=== PATIENT | female | born 1970 | race Hispanic/Latino ===

== ENCOUNTER → 2018-07-13 10:49 | Outpatient (CLI) | payer OTHER, SELFPAY ==
--- NOTE | 2018-07-13 | DI.US.S_ITS ---
PROCEDURE: US PELVIC COMPLETE INDICATIONS: UNSPECIFIED DYSPAREUNIA TECHNIQUE: Real-time scanning was performed of the pelvic organs, with image documentation. Additional endovaginal scanning was necessary due to incomplete visualization of the adnexal and endometrial structures by transabdominal scanning. COMPARISON: None. FINDINGS: Transabdominal scanning: Limited scanning through the kidneys shows no hydronephrosis. No pathologic free abdominal or pelvic fluid. Anteverted anteflexed uterus measures about 9.8 x 5.6 x 4.9 cm. Normal contours. Endovaginal scanning: Uterus: Uterus is normal in morphology without mass. The endometrium measures 7.2 mm in combined thickness. Normal vascularity. Ovaries: The right ovary measures 2.4 x 1.6 x 2.0 cm. The left measures 2.7 x 1.7 x 1.8 cm. Given the left ovarian position, vascularity is difficult to assess. Morphology is normal. Right ovary demonstrates normal morphology and vascularity. No suspicious adnexal masses. IMPRESSION: Normal pelvic ultrasound. Dictated by: Tomasa Mrain M.D. on 07/13/2018 at 16:16 Approved by: Tomasa Marin M.D. on 07/13/2018 at 16:23
== END ==
PROVIDERS: Family Provider Nurse Practitioner Family; Visit Provider Family Medicine
DX: N94.10 Unspecified dyspareunia (principal)
CPT/HCPCS: 76830; 76856

== ENCOUNTER → 2021-02-19 12:59 | Outpatient (CLI) | payer OTHER, MEDICAID, SELFPAY | PROVIDERS: PCP Family Medicine; Referring Provider Internal Medicine; Visit Provider Internal Medicine | DX: Z23 Encounter for immunization (principal) | CPT/HCPCS: 90471; 90686 ==

== ENCOUNTER → 2021-03-23 09:14 | Outpatient (CLI) | payer OTHER, MEDICAID, SELFPAY ==
[2021-03-23 22:29] LABS: COVID19 - ORCAS (NP or Nasal) POSITIVE (Negative)
== END ==
PROVIDERS: PCP Family Medicine; Visit Provider Family Medicine
DX: U07.1 COVID-19 (principal); Z20.822 Contact with and (suspected) exposure to COVID-19
CPT/HCPCS: U0003

== ENCOUNTER → 2021-05-18 08:24 | Outpatient (CLI) | payer OTHER, MEDICAID, SELFPAY ==
[2021-05-19 20:47] LABS: Alanine Aminotransferase 11 IU/L (<35); Albumin 4.3 g/dL (3.5-5.0); Albumin Globulin Ratio 1.3 (1.0-2.8); Alkaline Phosphatase 71 U/L (38-126); Aspartate Aminotransferase 29 IU/L (14-36); Bilirubin Total 0.5 mg/dL (0.2-1.3); Blood Urea Nitrogen 15 mg/dL (7-17); Calcium 9.3 mg/dL (8.4-10.2); Carbon Dioxide 29 mmol/L (22-32); Chloride 106 mmol/L (98-107); Cholesterol 197 mg/dL (140-199); Estimated Glomerular Filt Rate > 60.0 mL/min (>60); Globulin 3.2 g/dL (1.7-4.1); Glucose 100 mg/dL (70-100); HDL Cholesterol 61 mg/dL (40-60); HEMOLYSIS < 15 (0-50); LDL Cholesterol Calculated 113 mg/dL (<100); Potassium 3.9 mmol/L (3.4-5.1); Sodium 139 mmol/L (137-145); Total Protein 7.5 g/dL (6.3-8.2); Triglycerides 117 mg/dL (35-150)
[2021-05-19 21:53] LABS: Creatinine Urine Random 876.8 mg/dL; Microalbumi Creatinin Ratio Ur 52.8 ug/mg CR (<30); Microalbumin Urine Random 46.3 mg/dL (0-1.6)
[2021-05-19 22:57] LABS: Hemoglobin A1C% w Est Avg Glu 5.8 % (4.0-6.0)
== END ==
PROVIDERS: PCP Family Medicine; Visit Provider Family Medicine
DX: E11.9 Type 2 diabetes mellitus without complications (principal)
CPT/HCPCS: 80053; 80061; 82043; 82570; 83036

== ENCOUNTER → 2021-08-20 11:55 | Outpatient (CLI) | payer OTHER, MEDICAID, SELFPAY ==
[2021-08-20 18:30] LABS: Alanine Aminotransferase 13 IU/L (<35); Albumin 3.8 g/dL (3.5-5.0); Albumin Globulin Ratio 1.3 (1.0-2.8); Alkaline Phosphatase 71 U/L (38-126); Aspartate Aminotransferase 33 IU/L (14-36); BUN Creatinine Ratio 19.5 (6-22); Bilirubin Total 0.4 mg/dL (0.2-1.3); Blood Urea Nitrogen 15 mg/dL (7-17); Calcium 8.6 mg/dL (8.4-10.2); Carbon Dioxide 28 mmol/L (22-32); Chloride 104 mmol/L (98-107); Cholesterol 174 mg/dL (140-199); Estimated Glomerular Filt Rate > 60 mL/min (>60); Globulin 2.9 g/dL (1.7-4.1); Glucose 90 mg/dL (70-100); HDL Cholesterol 62 mg/dL (40-60); HEMOLYSIS < 15 (0-50); LDL Cholesterol Calculated 88 mg/dL (<100); Potassium 4.2 mmol/L (3.4-5.1); Sodium 136 mmol/L (137-145); Total Protein 6.7 g/dL (6.3-8.2); Triglycerides 119 mg/dL (35-150)
[2021-08-20 18:40] LABS: Creatinine Urine Random 162.8 mg/dL
[2021-08-20 18:44] LABS: Microalbumi Creatinin Ratio Ur 9.2 ug/mg CR (<30); Microalbumin Urine Random 1.5 mg/dL (0-1.6)
[2021-08-20 18:48] LABS: Hemoglobin A1C% w Est Avg Glu 5.4 % (4.0-6.0)
== END ==
PROVIDERS: PCP Family Medicine; Visit Provider Family Medicine
DX: E11.9 Type 2 diabetes mellitus without complications (principal)
CPT/HCPCS: 80053; 80061; 82043; 82570; 83036

== ENCOUNTER → 2022-01-13 08:59 | Outpatient (CLI) | payer OTHER, MEDICAID, SELFPAY ==
[2022-01-13 19:28] LABS: Alanine Aminotransferase 13 IU/L (<35); Albumin 4.2 g/dL (3.5-5.0); Albumin Globulin Ratio 1.4 (1.0-2.8); Alkaline Phosphatase 72 U/L (38-126); Aspartate Aminotransferase 28 IU/L (14-36); BUN Creatinine Ratio 15.2 (6-22); Bilirubin Total 0.6 mg/dL (0.2-1.3); Blood Urea Nitrogen 15 mg/dL (7-17); Carbon Dioxide 26 mmol/L (22-32); Chloride 103 mmol/L (98-107); Estimated Glomerular Filt Rate > 60 mL/min (>60); Glucose 94 mg/dL (70-100); HEMOLYSIS < 15 (0-50); Potassium 3.9 mmol/L (3.4-5.1); Sodium 138 mmol/L (137-145); Total Protein 7.2 g/dL (6.3-8.2)
[2022-01-13 19:38] LABS: Hemoglobin A1C% w Est Avg Glu 4.9 % (4.0-6.0)
== END ==
PROVIDERS: PCP Family Medicine; Visit Provider Family Medicine
DX: E11.9 Type 2 diabetes mellitus without complications (principal)
CPT/HCPCS: 80053; 83036

== ENCOUNTER → 2022-01-25 15:31 | Outpatient (CLI) | payer OTHER, MEDICAID, SELFPAY | PROVIDERS: PCP Family Medicine; Referring Provider Internal Medicine; Visit Provider Internal Medicine | DX: Z23 Encounter for immunization (principal) | CPT/HCPCS: 90471; 90686 ==

== ENCOUNTER → 2022-11-08 13:35 | Outpatient (CLI) | payer OTHER, MEDICAID, SELFPAY ==
[2022-11-08 20:18] LABS: Alanine Aminotransferase 11 IU/L (<35); Albumin 4.2 g/dL (3.5-5.0); Albumin Globulin Ratio 1.4 (1.0-2.8); Alkaline Phosphatase 62 U/L (38-126); Aspartate Aminotransferase 30 IU/L (14-36); BUN Creatinine Ratio 18.9 (6-22); Bilirubin Total 0.7 mg/dL (0.2-1.3); Blood Urea Nitrogen 17 mg/dL (7-17); Calcium 9.2 mg/dL (8.4-10.2); Carbon Dioxide 28 mmol/L (22-32); Chloride 103 mmol/L (98-107); Cholesterol 172 mg/dL (140-199); Estimated Glomerular Filt Rate > 60 mL/min (>60); Globulin 2.9 g/dL (1.7-4.1); Glucose 85 mg/dL (70-100); HDL Cholesterol 65 mg/dL (40-60); HEMOLYSIS < 15 (0-50); LDL Cholesterol Calculated 87 mg/dL (<100); Potassium 3.9 mmol/L (3.4-5.1); Sodium 136 mmol/L (137-145); Total Protein 7.1 g/dL (6.3-8.2); Triglycerides 102 mg/dL (35-150)
[2022-11-08 20:27] LABS: Hemoglobin A1C% w Est Avg Glu 4.7 % (4.0-6.0)
[2022-11-08 20:35] LABS: Follicle Stimulating Hormone 17.4 mIU/mL
[2022-11-16 11:30] LABS: Anti Mullerian Hormone <0.015 ng/mL (.)
== END ==
PROVIDERS: PCP Family Medicine; Visit Provider Nurse Practitioner Adult Health
DX: N95.1 Menopausal and female climacteric states (principal); E11.9 Type 2 diabetes mellitus without complications
CPT/HCPCS: 80053; 80061; 82397; 82670; 83001; 83036

== ENCOUNTER → 2023-02-22 10:21 | Outpatient (CLI) | payer OTHER, MEDICAID, SELFPAY | PROVIDERS: PCP Family Medicine; Referring Provider Family Medicine; Visit Provider Family Medicine | DX: Z23 Encounter for immunization (principal) | CPT/HCPCS: 90471; 90686 ==

== ENCOUNTER → 2023-05-06 16:46 | Outpatient (CLI) | payer OTHER, MEDICAID, SELFPAY ==
--- NOTE | 2023-05-06 16:47 | DI.MRI.S_ITS ---
PROCEDURE: MR HEAD/BRAIN WO/W CON INDICATIONS: distorted vision TECHNIQUE: Noncontrast axial T1 spin echo, axial T2 fast spin echo, sagittal and axial FLAIR, coronal T2 fast spin echo, axial gradient echo, axial diffusion and ADC through the brain. After the administration of contrast, axial and coronal and sagittal 3D VIBE or T1 spin echo with fat saturation through the brain. COMPARISON: None. FINDINGS: Image quality: Excellent. CSF Spaces: Basal cisterns are patent. No extra-axial fluid collections. Ventricles are normal in size and shape. Brain: No midline shift. No intracranial bleeds or masses. No abnormal intracranial enhancement. The brainstem appears normal. Diffusion-weighted images demonstrate no acute infarct. No chronic ischemic insults. Normal intravascular flow voids are present. A few scattered foci of T2 weighted hyperintensity can be seen within the peripheral and deep white matter. Skull and face: Calvarial marrow is normal in signal. Orbits appear normal. Sinuses: Sinuses and mastoids appear clear. IMPRESSION: A few scattered foci of nonenhancing T2 weighted hyperintensity can be seen. These are nonspecific, although please consider early chronic small vessel ischemic change, sequelae of migraine headaches, and a demyelinating process (including multiple sclerosis). No masses or abnormal enhancement can be seen. Dictated by: Long Lima M.D. on 05/06/2023 at 18:34 Approved by: Long Lima M.D. on 05/06/2023 at 18:36
--- NOTE | 2023-05-06 16:47 | DI.MG.S_ITS ---
BILATERAL DIGITAL SCREENING MAMMOGRAM 3D/2D WITH CAD: 05/06/2023 CLINICAL: Routine screening. Family history of breast cancer. Comparison is made to exams dated: 04/25/2014 mammogram - [facility] and 08/08/2019 mammogram - [facility]. There are scattered areas of fibroglandular density in both breasts (category b / 25%-50% glandular tissue). Current study was also evaluated with a Computer Aided Detection (CAD) system. There is a new irregular asymmetry in the left breast central to the nipple middle depth. No other significant masses, calcifications, or other findings are seen in either breast. IMPRESSION: INCOMPLETE: NEEDS ADDITIONAL IMAGING EVALUATION The new irregular asymmetry in the left breast is indeterminate. Additional views with possible ultrasound are recommended. Based on the Tyrer Cuzick model (a risk assessment model) the patient's lifetime risk is 9.9% and her 10 year risk is 2.4%. According to the ACR, ACS, and NCCN guidelines, an annual breast MRI exam along with mammogram is recommended if the patient's lifetime risk is 20% or greater. This exam was interpreted at Station ID: [id number]. NOTE: For mammograms, a report in lay terms will be sent to the patient. Approximately 15% of breast malignancies will not be visualized mammographically. In the management of a palpable breast mass, a negative mammogram must not discourage biopsy of a clinically suspicious lesion. Electronically Signed By: Tomasa covarrubias/erinn:05/09/2023 16:32:45 letter sent: Additional Imaging Needed ACR BI-RADS Category 0: Incomplete 3340F
== END ==
PROVIDERS: PCP Family Medicine; Referring Provider Family Medicine; Visit Provider Family Medicine
DX: Z12.31 Encounter for screening mammogram for malignant neoplasm of breast (principal); Z80.3 Family history of malignant neoplasm of breast; H53.9 Unspecified visual disturbance; R92.323 Mammographic fibroglandular density, bilateral breasts
CPT/HCPCS: 70553; 77063; 77067; A9579

== ENCOUNTER → 2023-05-18 08:25 | Outpatient (CLI) | payer OTHER, MEDICAID, SELFPAY ==
--- NOTE | 2023-05-18 | DI.MG.S_ITS ---
UNILATERAL LEFT DIGITAL DIAGNOSTIC MAMMOGRAM 3D/2D WITH ADDITIONAL VIEWS: 05/18/2023 CLINICAL: Additional evaluation requested from prior study. Comparison is made to exams dated: 05/06/2023 mammogram - [facility], 08/08/2019 mammogram - [facility], and 04/25/2014 mammogram - [facility]. There are scattered areas of fibroglandular density in the left breast (category b / 25%-50% glandular tissue). The asymmetry in the left breast central to the nipple middle depth is not seen in additional views. No other significant masses or calcifications are seen in the breast. IMPRESSION: BENIGN The irregular asymmetry in the left breast seen on the screening mammogram likely respresents superimposed fibroglandular tissue and is benign. There is no mammographic evidence of malignancy. Return to annual mammogram screening schedule is recommended. Based on the Tyrer Cuzick model (a risk assessment model) the patient's lifetime risk is 9.9% and her 10 year risk is 2.4%. According to the ACR, ACS, and NCCN guidelines, an annual breast MRI exam along with mammogram is recommended if the patient's lifetime risk is 20% or greater. This exam was interpreted at Station ID: [id number]. NOTE: For mammograms, a report in lay terms will be sent to the patient. Approximately 15% of breast malignancies will not be visualized mammographically. In the management of a palpable breast mass, a negative mammogram must not discourage biopsy of a clinically suspicious lesion. Electronically Signed By: Casi Mathew M.D. lk/:05/18/2023 08:57:48 letter sent: Normal Exam ACR BI-RADS Category 2: Benign Finding(s) 3342F
== END ==
LOC: MAMMO 08:25
PROVIDERS: PCP Family Medicine; Referring Provider Family Medicine; Visit Provider Family Medicine
DX: R92.8 Other abnormal and inconclusive findings on diagnostic imaging of breast (principal); Z80.3 Family history of malignant neoplasm of breast; R92.322 Mammographic fibroglandular density, left breast
CPT/HCPCS: 77065; G0279

== ENCOUNTER 2023-05-27 19:00 | Emergency (ER) | payer OTHER, MEDICAID, SELFPAY ==
[2023-05-27] VITALS (12 sets, daily range): BP systolic 162–212; BP diastolic 90–113; PULSE 68–89; RESP 17; TEMP 36.8; O2SAT 95–100
--- NOTE | 2023-05-27 19:06 | DI.CT.S_ITS ---
PROCEDURE: CT HEAD/BRAIN WO CON INDICATIONS: SEVERE R SIDED RAM X2 DAYS TECHNIQUE: Noncontrast 4.5 mm thick angled axial sections acquired from the foramen magnum to the vertex, with coronal and sagittal reformats. For radiation dose reduction, the following was used: automated exposure control, adjustment of mA and/or kV according to patient size. COMPARISON: [facility], MR, MR HEAD/BRAIN WO/W CON, 05/06/2023, 17:54. FINDINGS: Image quality: Diagnostic CSF spaces: Basal cisterns are patent. Lateral ventricles are symmetric. Volume: Minimal volume loss Brain: No acute hemorrhage. No gross loss of foy-white differentiation. Craniofacial structures: No significant paranasal sinus opacification. Partially empty sella. IMPRESSION: No acute intracranial abnormality. If there is high concern for parenchymal pathology, consider further evaluation with MRI. Dictated by: Delroy Dinh M.D. on 05/27/2023 at 19:38 Approved by: Delroy Dinh M.D. on 05/27/2023 at 19:40
[2023-05-27 19:28] LABS: Add Manual Diff / Slide Review NO; Basophils Absolute Auto 100 /uL (0-100); Basophils Percent Auto 1.2 % (0-2); Eosinophils Absolute Auto 200 /uL (0-450); Eosinophils Percent Auto 2.2 % (2-4); Hematocrit 38.5 % (36-46); Hemoglobin 12.8 g/dL (12.0-16.0); Lymphocytes Absolute Auto 2500 /uL (1100-4500); Lymphocytes Percent Auto 35.9 % (25-40); Mean Corpuscular HGB Conc 33.2 % (30-36); Mean Corpuscular Hemoglobin 26.8 PG (26-34); Mean Corpuscular Volume 80.9 fL (80-100); Monocytes Absolute Auto 400 /uL (0-900); Monocytes Percent Auto 6.1 % (3-14); Neutrophils Absolute Auto 3700 /uL (1500-7000); Neutrophils Percent Auto 54.6 % (50-75); Platelet Count 275 X10^3/uL (150-400); Red Blood Cell Count 4.77 X10^6/uL (4.0-5.2); Red Cell Distribution Width 16.1 % (11.6-14.8); White Blood Cell Count 6.8 X10^3/uL (4.5-11.0)
[2023-05-27 19:34] LABS: Alanine Aminotransferase 11 IU/L (<35); Albumin 4.2 g/dL (3.5-5.0); Albumin Globulin Ratio 1.3 (1.0-2.8); Alkaline Phosphatase 50 U/L (38-126); Aspartate Aminotransferase 32 IU/L (14-36); BUN Creatinine Ratio 20.7 (6-22); Bilirubin Total 0.5 mg/dL (0.2-1.3); Blood Urea Nitrogen 19 mg/dL (7-17); Calcium 8.8 mg/dL (8.4-10.2); Carbon Dioxide 28 mmol/L (22-32); Chloride 108 mmol/L (98-107); Estimated Glomerular Filt Rate > 60 mL/min (>60); Globulin 3.3 g/dL (1.7-4.1); Glucose 97 mg/dL (70-100); Sodium 139 mmol/L (137-145); Total Protein 7.5 g/dL (6.3-8.2)
[2023-05-27] MEDS: SODIUM CHLORIDE 0.9% 1,000 ML 1000 ML IV (19:34)
[2023-05-27] MEDS: diphenhydrAMINE 50 MG/ML VIAL IV (19:34)
[2023-05-27] MEDS: METOCLOPRAMIDE 10 MG/2 ML INJ IV (19:34)
[2023-05-27 19:35] LABS: HEMOLYSIS 67 (0-50); Potassium 4.7 mmol/L (3.4-5.1)
--- NOTE | 2023-05-27 19:50 | ED_ITS ---
HPI - Headache General Chief Complaint: Headache Stated Complaint: Severe Migrain Time Seen by Provider: 05/27/23 19:04 Mode of arrival: other History of Present Illness HPI Narrative: 52-year-old female with history of migraine headaches presents by flight medics from [facility] for right-sided headache with nausea and vomiting. Patient states that she is usually able to control her migraines by closing all the curtains and sleeping off the headache, however for the last several days she has had a pain that is pinpoint in nature to the right side of her head above her ear. Pain is constant with intermittent sharp worsening. Associated with nausea and vomiting. Attempted Tylenol and ibuprofen at home for pain without significant relief. Reported fever of 101 F yesterday, none today. Related Data Home Medications Medication Instructions Recorded Confirmed meloxicam 7.5 mg tablet 7.5 mg PO BID 04/14/23 04/14/23 semaglutide 2 mg/dose (8 mg/3 mL) mg SUBCUT Weight management 04/14/23 04/14/23 subcutaneous pen injector (Ozempic) sertraline 100 mg tablet 200 mg PO DAILY Anxiety 04/14/23 04/14/23 Allergies Allergy/AdvReac Type Severity Reaction Status Date / Time No Known Drug Allergies Allergy Unverified 10/19/22 16:06 Review of Systems Review of Systems Narrative: Negative except as noted above Patient History Medical History (Updated 05/27/23 @ 23:21 by Meg Gaston MD) Cervical cancer screening Well woman exam with routine gynecological exam Social History Smoking Status: Former smoker Smoking Status: Former smoker alcohol intake frequency: other Substance Use Type: does not use Exam Initial Vital Signs Initial Vital Signs: Vital Signs Pulse Oximetry 100 05/27/23 19:03 Const: Awake, alert, no acute distress, nontoxic appearing HEENT: atraumatic, no reproducible tenderness to palpation, TM normal bilaterally. Patient points to temporal region of R scalp as area of pain, however it is not reproducible Cardiac: regular rate, regular rhythm RESP: unlabored, clear bilaterally, no wheezing GI: Atraumatic, soft, nontender, nondistended, no rebound, no guarding MSK: Atraumatic, full range of motion, pulses equal Skin: Warm, Dry, intact, no rashes Neuro: AO x3, CN II-XII grossly intact, moves all extremities Course Orders Ordered: Discontinued Medications Dexamethasone (Dexamethasone 10 Mg/Ml Vial) 10 mg IV NOW ONE Stop: 05/27/23 19:51 Last Admin: 05/27/23 20:15 Dose: 10 mg Documented By: SURAJ Diphenhydramine HCl (Diphenhydramine 50 Mg/Ml Vial) 50 mg IV NOW ONE Stop: 05/27/23 19:24 Last Admin: 05/27/23 19:34 Dose: 50 mg Documented By: PABLITO Sodium Chloride (Normal Saline 0.9%) 1,000 mls @ 1,000 mls/hr IV BOLUS ONE Stop: 05/27/23 20:22 Last Infusion: 05/27/23 21:01 Dose: Infused Documented By: Admin: 05/27/23 19:34 Dose: 1,000 mls/hr Documented By: PABLITO Acetaminophen (Ofirmev) 1,000 mg in 100 mls @ 400 mls/hr IV NOW ONE Stop: 05/27/23 20:04 Last Infusion: 05/27/23 21:01 Dose: Infused Documented By: Admin: 05/27/23 20:16 Dose: 400 mls/hr Documented By: SURAJ Ketorolac Tromethamine (Ketorolac 30 Mg/Ml Vial) 15 mg IV NOW ONE Stop: 05/27/23 19:51 Last Admin: 05/27/23 20:16 Dose: 15 mg Documented By: SURAJ Metoclopramide HCl (Metoclopramide 10 Mg/2 Ml Inj) 10 mg IV NOW ONE Stop: 05/27/23 19:24 Last Admin: 05/27/23 19:34 Dose: 10 mg Documented By: PABLITO Vital Signs Vital signs: Vital Signs - 8 hr 05/27/23 19:03 05/27/23 19:04 05/27/23 19:04 Temperature Pulse Rate 86 Respiratory Rate Blood Pressure 212/111 H Pulse Oximetry 100 97 Oxygen Delivery Method 05/27/23 19:10 05/27/23 19:23 05/27/23 19:23 Temperature 98.3 F Pulse Rate 83 84 Respiratory Rate 17 Blood Pressure 212/111 H 184/95 H Pulse Oximetry 97 97 Oxygen Delivery Method Room Air 05/27/23 19:30 05/27/23 19:30 05/27/23 20:00 Temperature Pulse Rate 77 Respiratory Rate Blood Pressure 175/91 H 176/113 H Pulse Oximetry 97 Oxygen Delivery Method 05/27/23 20:00 05/27/23 20:30 05/27/23 20:30 Temperature Pulse Rate 78 68 Respiratory Rate Blood Pressure 171/95 H Pulse Oximetry 97 96 Oxygen Delivery Method 05/27/23 21:00 05/27/23 21:01 05/27/23 21:01 Temperature Pulse Rate 76 75 Respiratory Rate Blood Pressure 162/90 H Pulse Oximetry 95 96 Oxygen Delivery Method MDM - Headache Differential Diagnosis Differential diagnosis: Likely migraine, tension headache and subarachnoid hemorrhage Lab Data 05/27/23 19:08 05/27/23 19:08 Labs: Lab Results 05/27/23 05/27/23 Range/Units 19:03 19:08 WBC 6.8 (4.5-11.0) X10^3/uL RBC 4.77 (4.0-5.2) X10^6/uL Hgb 12.8 (12.0-16.0) g/dL Hct 38.5 (36-46) % MCV 80.9 (80-100) fL MCH 26.8 (26-34) PG MCHC 33.2 (30-36) % RDW 16.1 H (11.6-14.8) % Plt Count 275 (150-400) X10^3/uL Neut % (Auto) 54.6 (50-75) % Lymph % (Auto) 35.9 (25-40) % [place] % (Auto) 6.1 (3-14) % Eos % (Auto) 2.2 (2-4) % Baso % (Auto) 1.2 (0-2) % Neut # (Auto) 3700 (3379-9309) /uL Lymph # (Auto) 2500 (8623-5600) /uL [place] # (Auto) 400 (0-900) /uL Eos # (Auto) 200 (0-450) /uL Baso # (Auto) 100 (0-100) /uL Sodium 139 (137-145) mmol/L Potassium 4.7 (3.4-5.1) mmol/L Chloride 108 H (98-107) mmol/L Carbon Dioxide 28 (22-32) mmol/L BUN 19 H (7-17) mg/dL Creatinine 0.92 (0.52-1.04) mg/dL Estimated GFR > 60 (>60) mL/min BUN/Creatinine Ratio 20.7 (6-22) Glucose 97 (70-100) mg/dL Calcium 8.8 (8.4-10.2) mg/dL Total Bilirubin 0.5 (0.2-1.3) mg/dL AST 32 (14-36) IU/L ALT 11 (<35) IU/L Alkaline Phosphatase 50 (38-126) U/L Total Protein 7.5 (6.3-8.2) g/dL Albumin 4.2 (3.5-5.0) g/dL Globulin 3.3 (1.7-4.1) g/dL Albumin/Globulin Ratio 1.3 (1.0-2.8) Chlamy pneumoniae PCR Not detected (Not Detect) Adenovirus (PCR) Not detected (Not Detect) B.parapertussis DNA PCR Not detected (Not Detecte) Coronavirus OC43 (PCR) Not detected (Not Detect) Coronavirus HKU1 (PCR) Not detected (Not Detect) Coronavirus 229E (PCR) Not detected (Not Detect) SARS-CoV-2 (PCR) Detected H (Not Detecte) Coronavirus NL63 (PCR) Not detected (Not Detect) Human Metapneumovir PCR Not detected (Not Detect) Influenza Type A (PCR) Not detected (Not Detect) Influenza Type B (PCR) Not detected (Not Detect) M. pneumoniae (PCR) Not detected (Not Detect) Parainfluenza 1 (PCR) Not detected (Not Detect) Parainfluenza 2 (PCR) Not detected (Not Detect) Parainfluenza 3 (PCR) Not detected (Not Detect) Parainfluenza 4 (PCR) Not detected (Not Detect) RSV (PCR) Not detected (Not Detect) Entero/Rhino (PCR) Not detected (Not Detect) Imaging Data CT scan - head: Radiologist's Impression: PROCEDURE: CT HEAD/BRAIN WO CON INDICATIONS: SEVERE R SIDED RAM X2 DAYS TECHNIQUE: Noncontrast 4.5 mm thick angled axial sections acquired from the foramen magnum to the vertex, with coronal and sagittal reformats. For radiation dose reduction, the following was used: automated exposure control, adjustment of mA and/or kV according to patient size. COMPARISON: [facility], MR, MR HEAD/BRAIN WO/W CON, 05/06/2023, 17:54. FINDINGS: Image quality: Diagnostic CSF spaces: Basal cisterns are patent. Lateral ventricles are symmetric. Volume: Minimal volume loss Brain: No acute hemorrhage. No gross loss of foy-white differentiation. Craniofacial structures: No significant paranasal sinus opacification. Partially empty sella. IMPRESSION: No acute intracranial abnormality. If there is high concern for parenchymal pathology, consider further evaluation with MRI. Dictated by: Delroy Dinh M.D. on 05/27/2023 at 19:38 Approved by: Delroy Dinh M.D. on 05/27/2023 at 19:40 [facility] Narrative Medical decision making narrative: Uncomfortable but nontoxic female presenting for headache with nausea and vomiting different from migraines that she has experienced in the past. Pain is located in the right temporal region above the ear but is not reproducible to palpation. No obvious physical exam abnormalities, neurologically intact. Initial blood pressure very hypertensive, however noted to be systolic 150-160 during transport by medics and shortly after arrival patient's blood pressure came back down to her normal range without any therapies. Since headache is different from her typical plan to order CT scan of the head. CT brain negative for acute findings. Patient reports minimal improvement in pain with initial headache cocktail of Reglan and Benadryl. Since there was no acute intracranial pathology we will order Toradol and IV Tylenol as well. Respiratory panel positive for COVID-19. Patient states she still has some residual temporal pain, however it was much improved and she was not experienced any of the spiking in pain since receiving the medications. She states she feels ready to go home, especially knowing that her CT was normal, and she will continue to treat her pain with Tylenol and Motrin. Patient is strongly advised to follow up with her primary care physician. Discharge Plan Departure Patient Disposition: Home Clinical Impression: Headache, Nausea & vomiting, COVID-19 Instructions: DI for Migraine Activity Restrictions/Additional Instructions: TAKE TYLENOL AND MOTRIN NEEDED FOR PAIN OR HEADACHE. GET PLENTY OF FLUIDS AND GET PLENTY OF REST. FOLLOW UP WITH YOUR PRIMARY CARE PHYSICIAN. Prescriptions: No Action sertraline 100 mg tablet 200 mg PO DAILY Ozempic 2 mg/dose (8 mg/3 mL) pen injector SUBCUT meloxicam 7.5 mg tablet 7.5 mg PO BID Referrals: Froilan Milan MD [Primary Care Provider] - Stand Alone Forms: Patient Portal/API
[2023-05-27] MEDS: DEXAMETHASONE 10 MG/ML VIAL IV (20:15)
[2023-05-27] MEDS: ACETAMINOPHEN IV 1,000 MG/100 ML VIAL 400 MG IV (20:16)
[2023-05-27] MEDS: KETOROLAC 30 MG/ML VIAL 15 MG IV (20:16)
[2023-05-27 20:30] LABS: Adenovirus Not Detected (Not Detect); B. parapertussis Not Detected (Not Detecte); Bordetella pertussis Not Detected (Not Detect); Chlamydophila pneumoniae Not Detected (Not Detect); Coronavirus 229E Not Detected (Not Detect); Coronavirus HKU1 Not Detected (Not Detect); Coronavirus NL 63 Not Detected (Not Detect); Coronavirus OC43 Not Detected (Not Detect); Human Metapneumovirus Not Detected (Not Detect); Human Rhinovirus/Enterovirus Not Detected (Not Detect); Influenza A Not Detected (Not Detect); Influenza B Not Detected (Not Detect); Mycoplasma pneumoniae Not Detected (Not Detect); Parainfluenza Virus 1 Not Detected (Not Detect); Parainfluenza Virus 2 Not Detected (Not Detect); Parainfluenza Virus 3 Not Detected (Not Detect); Parainfluenza Virus 4 Not Detected (Not Detect); Respiratory Syncytial Virus Not Detected (Not Detect)
[2023-05-27 20:37] LABS: SARS- CoV-2 Detected (Not Detecte)
--- NOTE | 2023-05-27 23:07 | PC.NURSE ---
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 pt now has bruising on upper arm and red colmenares from BP cuff
== END 2023-05-27 23:27 | disposition home or self-care (01) ==
PROVIDERS: Emergency Provider Emergency Medicine; PCP Family Medicine
DX: U07.1 COVID-19 (principal); R11.2 Nausea with vomiting, unspecified; R51.9 Headache, unspecified
CPT/HCPCS: 70450; 80053; 85025; 87633; 96365; 96375; 99284; J0136; J1100; J1200; J1885; J2765

== ENCOUNTER → 2024-05-07 12:50 | Outpatient (CLI) | payer OTHER, SELFPAY ==
[2024-05-07 19:01] LABS: Add Manual Diff / Slide Review NO; Basophils Absolute Auto 0 /uL (0-100); Basophils Percent Auto 0.7 % (0-2); Eosinophils Absolute Auto 100 /uL (0-450); Eosinophils Percent Auto 1.2 % (2-4); Hematocrit 39.4 % (36-46); Lymphocytes Absolute Auto 2200 /uL (1100-4500); Lymphocytes Percent Auto 33.3 % (25-40); Mean Corpuscular Hemoglobin 26.5 PG (26-34); Mean Corpuscular Volume 80.2 fL (80-100); Monocytes Absolute Auto 300 /uL (0-900); Monocytes Percent Auto 5.2 % (3-14); Neutrophils Absolute Auto 4000 /uL (1500-7000); Neutrophils Percent Auto 59.6 % (50-75); Platelet Count 338 X10^3/uL (150-400); Red Blood Cell Count 4.92 X10^6/uL (4.0-5.2); Red Cell Distribution Width 16.6 % (11.6-14.8); White Blood Cell Count 6.6 X10^3/uL (4.5-11.0)
[2024-05-07 19:35] LABS: Follicle Stimulating Hormone 7.96 mIU/mL
[2024-05-07 19:37] LABS: Vitamin D 25 Hydroxy (D3) < 12.8 ng/mL (30.0-100.0)
[2024-05-07 19:40] LABS: Free T4, Direct Thyroxine 1.12 ng/dL (0.78-2.19)
[2024-05-07 19:50] LABS: Estradiol, Total 95.3 pg/mL
[2024-05-07 19:54] LABS: Ferritin 6 ng/mL (11-264); Thyroid Stimulating Hormone 1.93 uIU/mL (0.47-4.68)
[2024-05-07 20:14] LABS: Vitamin B12 386 pg/mL (239-931)
[2024-05-13 20:10] LABS: Anti Mullerian Hormone <0.015 ng/mL (.)
== END ==
PROVIDERS: PCP Family Medicine; Visit Provider Nurse Practitioner Adult Health
DX: N93.8 Other specified abnormal uterine and vaginal bleeding (principal); E28.2 Polycystic ovarian syndrome
CPT/HCPCS: 82306; 82397; 82607; 82670; 82728; 83001; 84439; 84443; 85025

== ENCOUNTER → 2024-06-12 09:20 | Outpatient (CLI) | payer OTHER, SELFPAY ==
[2024-06-12 18:56] LABS: Add Manual Diff / Slide Review NO; Basophils Absolute Auto 0 /uL (0-100); Basophils Percent Auto 0.4 % (0-2); Eosinophils Absolute Auto 100 /uL (0-450); Eosinophils Percent Auto 2.4 % (2-4); Hematocrit 40.5 % (36-46); Hemoglobin 13.3 g/dL (12.0-16.0); Lymphocytes Absolute Auto 1700 /uL (1100-4500); Lymphocytes Percent Auto 36.8 % (25-40); Mean Corpuscular HGB Conc 32.9 % (30-36); Mean Corpuscular Hemoglobin 26.6 PG (26-34); Mean Corpuscular Volume 80.8 fL (80-100); Monocytes Absolute Auto 300 /uL (0-900); Monocytes Percent Auto 6.2 % (3-14); Neutrophils Absolute Auto 2600 /uL (1500-7000); Neutrophils Percent Auto 54.2 % (50-75); Platelet Count 268 X10^3/uL (150-400); Red Blood Cell Count 5.01 X10^6/uL (4.0-5.2); Red Cell Distribution Width 16.4 % (11.6-14.8); White Blood Cell Count 4.8 X10^3/uL (4.5-11.0)
[2024-06-12 18:59] LABS: Alanine Aminotransferase 15 IU/L (<35); Albumin 4.4 g/dL (3.5-5.0); Albumin Globulin Ratio 1.5 (1.0-2.8); Alkaline Phosphatase 56 U/L (38-126); Aspartate Aminotransferase 37 IU/L (14-36); BUN Creatinine Ratio 18.6 (6-22); Bilirubin Total 0.6 mg/dL (0.2-1.3); Blood Urea Nitrogen 18 mg/dL (7-17); Calcium 9.6 mg/dL (8.4-10.2); Carbon Dioxide 27 mmol/L (22-32); Chloride 101 mmol/L (98-107); Cholesterol 202 mg/dL (140-199); Estimated Glomerular Filt Rate > 60 mL/min (>60); Globulin 2.9 g/dL (1.7-4.1); Glucose 96 mg/dL (70-100); HDL Cholesterol 76 mg/dL (40-60); HEMOLYSIS < 15 (0-50); LDL Cholesterol Calculated 107 mg/dL (<100); Sodium 139 mmol/L (137-145); Total Protein 7.3 g/dL (6.3-8.2); Triglycerides 95 mg/dL (35-150)
[2024-06-12 19:16] LABS: Vitamin D 25 Hydroxy (D3) 27.1 ng/mL (30.0-100.0)
[2024-06-12 19:21] LABS: Hemoglobin A1C% w Est Avg Glu 4.8 % (4.0-6.0)
[2024-06-12 19:24] LABS: HEMOLYSIS < 15 (0-50); Iron 60 ug/dL (37-170)
[2024-06-12 19:33] LABS: Ferritin 7 ng/mL (11-264)
[2024-06-12 19:37] LABS: Percent Iron Saturation 14 % (15-50); Total Iron Binding Capacity 421 ug/dL (265-497); Transferrin 368 mg/dL (206-381)
[2024-06-12 20:20] LABS: Microalbumin Urine Random 1.3 mg/dL (0-1.6)
[2024-06-12 20:31] LABS: Folate 11.7 ng/mL (2.76-20.0); Vitamin B12 354 pg/mL (239-931)
== END ==
PROVIDERS: PCP Family Medicine; Visit Provider Family Medicine
DX: E61.1 Iron deficiency (principal); E53.8 Deficiency of other specified B group vitamins; E55.9 Vitamin D deficiency, unspecified; E11.9 Type 2 diabetes mellitus without complications
CPT/HCPCS: 80053; 80061; 82043; 82306; 82570; 82607; 82728; 82746; 83036; 83540; 83550; 85025

== ENCOUNTER → 2024-12-03 10:00 | Outpatient (CLI) | payer OTHER, SELFPAY ==
[2024-12-03 19:23] LABS: HEMOLYSIS < 15 (0-50)
[2024-12-03 19:33] LABS: Hemoglobin A1C% w Est Avg Glu 5.2 % (4.0-6.0)
[2024-12-03 19:44] LABS: Vitamin D 25 Hydroxy (D3) 34.0 ng/mL (30.0-100.0)
[2024-12-03 19:53] LABS: Total Iron Binding Capacity 421 ug/dL (265-497); Transferrin 364 mg/dL (206-381)
[2024-12-03 20:01] LABS: Ferritin 7 ng/mL (11-264)
[2024-12-03 20:41] LABS: Folate 9.1 ng/mL (2.76-20.0); Vitamin B12 425 pg/mL (239-931)
[2024-12-05 14:37] LABS: Iron 71 ug/dL (37-170); Percent Iron Saturation 17 % (15-50)
== END ==
PROVIDERS: PCP Family Medicine; Visit Provider Nurse Practitioner Adult Health
DX: E28.2 Polycystic ovarian syndrome (principal); E55.9 Vitamin D deficiency, unspecified; E61.1 Iron deficiency; E53.8 Deficiency of other specified B group vitamins
CPT/HCPCS: 82306; 82607; 82728; 82746; 83036; 83540; 83550